=== PATIENT | male | born 1965 ===

== ENCOUNTER 2021-02-13 19:24 | Emergency (ER) | payer SELFPAY ==
[2021-02-13 21:14] VITALS: BP 141/90
[2021-02-13 21:44] LABS: Basophils # (Auto) 0.1 K/mm3 (0.0-0.1); Basophils % (Auto) 0.8 % (0.0-1.8); Eosinophils # (Auto) 0.3 K/mm3 (0.0-0.4); Eosinophils % (Auto) 2.5 % (0.0-4.3); Hematocrit 35.9 % (35.5-45.6); Hemoglobin 12.8 gm/dl (11.8-15.2); Lymphocytes # (Auto) 2.7 K/mm3 (1.2-5.4); Lymphocytes % (Auto) 22.2 % (13.4-35.0); Mean Corpuscular HGB Conc 36 % (32-34); Mean Corpuscular Volume 94 fl (84-94); Monocytes # (Auto) 0.9 K/mm3 (0.0-0.8); Monocytes % (Auto) 7.2 % (0.0-7.3); Platelet Count 328 K/mm3 (140-440); Red Blood Count 3.82 M/mm3 (3.65-5.03); Red Cell Distribution Width 13.8 % (13.2-15.2)
[2021-02-13 22:07] LABS: Blood Urea Nitrogen 10 mg/dL (9-20); Calcium 8.7 mg/dL (8.4-10.2); Hemolysis Index 10
[2021-02-13 22:08] LABS: BUN/Creatinine Ratio 14
--- NOTE | 2021-02-13 22:43 | Emergency Department Report ---
- General Chief complaint: Wound/Laceration Stated complaint: LT ARM WOUND Time Seen by Provider: 02/13/21 22:16 Source: EMS Mode of arrival: Ambulatory Limitations: Language Barrier - History of Present Illness Initial comments: [place] interpretation by Pradeep security specialist Patient is a 55-year-old who presents emergency room with complaints of a lump present to his left shoulder that began a month ago. He states initially it began as a small lump. He states over the course of the last month it has increased in size. He states that the last few days it has been draining and had a foul odor. He denies any fever, vomiting, diarrhea, chills. He denies ever having this in the past. No past medical history. No allergies to medications. He endorses tobacco and alcohol use. - Related Data Previous Rx's Medication Instructions Recorded Last Taken Type Sulfamethoxazole/Trimethoprim 1 each PO BID 7 Days #14 tablet 02/13/21 Unknown Rx [Bactrim DS TAB] Allergies Allergy/AdvReac Type Severity Reaction Status Date / Time No Known Allergies Allergy Unverified 02/13/21 21:13 Abscess Boil HPI - HPI Chief Complaint: Wound/Laceration Stated Complaint: LT ARM WOUND Time Seen by Provider: 02/13/21 22:16 Home Medications: Previous Rx's Medication Instructions Recorded Last Taken Type Sulfamethoxazole/Trimethoprim 1 each PO BID 7 Days #14 tablet 02/13/21 Unknown Rx [Bactrim DS TAB] Allergies/Adverse Reactions: Allergies Allergy/AdvReac Type Severity Reaction Status Date / Time No Known Allergies Allergy Unverified 02/13/21 21:13 ED Review of Systems ROS: Stated complaint: LT ARM WOUND Other details as noted in HPI Comment: All other systems reviewed and negative ED Past Medical Hx - Past Medical History Previous Medical History?: No - Surgical History Past Surgical History?: No - Social History Smoking Status: Never Smoker Substance Use Type: None - Medications Home Medications: Home Medications Medication Instructions Recorded Confirmed Last Taken Type Sulfamethoxazole/Trimethoprim 1 each PO BID 7 Days #14 tablet 02/13/21 Unknown Rx [Bactrim DS TAB] ED Physical Exam - General Limitations: No Limitations General appearance: alert, in no apparent distress - Head Head exam: Present: atraumatic, normocephalic - Eye Eye exam: Present: normal appearance - ENT ENT exam: Present: mucous membranes moist - Neurological Exam Neurological exam: Present: alert, oriented X3 - Psychiatric Psychiatric exam: Present: normal affect, normal mood - Skin Skin exam: Present: other (there is a 4 cm lesion present to the left upper shoulder region, there is a few small areas of tissue necrosis, no drainage, there is surrounding erythema) ED Course Vital Signs 02/13/21 21:05 Temperature 98.1 F Pulse Rate 89 Respiratory 16 Rate Blood Pressure 141/90 O2 Sat by Pulse 97 Oximetry ED Medical Decision Making - Lab Data Result diagrams: 02/13/21 21:29 02/13/21 21:29 Lab Results 02/13/21 02/13/21 Range/Units 21:29 21:29 WBC 12.3 H (4.5-11.0) K/mm3 RBC 3.82 (3.65-5.03) M/mm3 Hgb 12.8 (11.8-15.2) gm/dl Hct 35.9 (35.5-45.6) % MCV 94 (84-94) fl MCH 34 H (28-32) pg MCHC 36 H (32-34) % RDW 13.8 (13.2-15.2) % Plt Count 328 (140-440) K/mm3 Lymph % (Auto) 22.2 (13.4-35.0) % [place] % (Auto) 7.2 (0.0-7.3) % Eos % (Auto) 2.5 (0.0-4.3) % Baso % (Auto) 0.8 (0.0-1.8) % Lymph # (Auto) 2.7 (1.2-5.4) K/mm3 [place] # (Auto) 0.9 H (0.0-0.8) K/mm3 Eos # (Auto) 0.3 (0.0-0.4) K/mm3 Baso # (Auto) 0.1 (0.0-0.1) K/mm3 Seg Neutrophils % 67.3 (40.0-70.0) % Seg Neutrophils # 8.3 H (1.8-7.7) K/mm3 Sodium 139 (137-145) mmol/L Potassium 4.0 (3.6-5.0) mmol/L Chloride 101.2 (98-107) mmol/L Carbon Dioxide 26 (22-30) mmol/L Anion Gap 16 mmol/L BUN 10 (9-20) mg/dL Creatinine 0.7 L (0.8-1.3) mg/dL Estimated GFR > 60 ml/min BUN/Creatinine Ratio 14 % Glucose 82 (75-100) mg/dL Calcium 8.7 (8.4-10.2) mg/dL - Medical Decision Making [place] interpretation by Pradeep security specialist Patient is a 55-year-old who presents emergency room with complaints of a lump present to his left shoulder that began a month ago. He states initially it began as a small lump. He states over the course of the last month it has increased in size. He states that the last few days it has been draining and had a foul odor. He denies any fever, vomiting, diarrhea, chills. He denies ever having this in the past. No past medical history. No allergies to medications. He endorses tobacco and alcohol use. Vitals are stable. On exam:there is a 4 cm lesion present to the left upper shoulder region, there is a few small areas of tissue necrosis, no drainage, there is surrounding erythema. Dr. Lm Panchal, ER attending evaluated patient at bedside and states that exam is concerning for skin carcinoma. He agrees that it appears to have secondary cellulitis and advised to place patient on antibiotics. [place]ard Operator Tonny huitron used to discuss with patient and stressed the importance of follow-up and concerns for skin cancer. advised pt Please take medication as prescribed. You can get your antibiotic free from [facility]. Please follow-up with a roving frame tender. It is very important that you follow-up due to concerns for skin cancer. Return to emergency room for any new or worsening symptoms. Critical care attestation.: If time is entered above; I have spent that time in minutes in the direct care of this critically ill patient, excluding procedure time. ED Disposition Clinical Impression: Skin lesion, Cellulitis Disposition: [id number] TO HOME OR SELFCARE Is pt being admited?: No Does the pt Need Aspirin: No Condition: Stable Instructions: Cellulitis, Adult, Basal Cell Carcinoma, Squamous Cell Carcinoma Additional Instructions: Please take medication as prescribed. You can get your antibiotic free from [facility]. Please follow-up with a roving frame tender. It is very important that you follow-up due to concerns for skin cancer. Return to emergency room for any new or worsening symptoms. Colman la medicacin segn lo prescrito. Puede obtener castillo antibitico gratis en la farm[facility]. Abdon un seguimiento con un dermatlogo. Es muy importante que realice un seguimiento debido a las preocupaciones sobre el cncer de piel. Regrese a la todd de emergencias por cualquier sntoma nuevo o que empeore. [facility] in [place], [place] Address: [address], [place] [address] Joseph Pedersen MD Address: [address] [place] [address] [facility] Address: [address] [place] [address] Prescriptions: Sulfamethoxazole/Trimethoprim [Bactrim DS TAB] 1 each PO BID 7 Days #14 tablet Referrals: JAYSON BEAR MD [Staff Physician] - 2-3 Days Time of Disposition: 22:45 Print Language: [place]
== END 2021-02-13 23:10 | disposition home or self-care (01) ==
LOC: ED 19:24
DX: L03.114 Cellulitis of left upper limb (principal); L98.9 Disorder of the skin and subcutaneous tissue, unspecified; Z79.899 Other long term (current) drug therapy
CPT/HCPCS: 36415; 80048; 85025; 99283